=== PATIENT | female | born 1980 | race Caucasian/White ===

== ENCOUNTER 2023-07-07 22:28 | Observation (INO) | payer OTHER, SELFPAY ==
[2023-07-07] VITALS (14 sets, daily range): BP systolic 85–105; BP diastolic 63–71; PULSE 94–97; RESP 19–24; TEMP 37.1; O2SAT 81–100
--- NOTE | 2023-07-07 22:42 | ECG_ITS ---
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
--- NOTE | 2023-07-07 22:43 | CT_ITS ---
[address] [address] Patient Name: LIZET CUADRA MRN: [id number] date: 1980 Sex: F Assigned Patient Location: ER Current Patient Location: ER Accession/Order Number: [id number] Exam Date: 07/07/2023 23:00 Report Date: 07/07/2023 23:58 At the request of: ARIANNA ANTUNEZ Procedure: CT head/brain wo con EXAM: CT head/brain wo con, CT cervical spine wo con HISTORY: altered mentation, unwitnessed fall COMPARISON: None. TECHNIQUE: Axial CT scans through the head were obtained without IV contrast administration. Dose reduction techniques were achieved by using: automated exposure control and/or adjustment of mA and /or kV according to patient size and/or use of iterative reconstruction technique. CT BRAIN FINDINGS: There is no evidence of acute intracranial hemorrhage or abnormal extra-axial fluid collection. No mass effect or midline shift is seen. There is no evidence of large acute territorial infarction. There is no hydrocephalus. No definite acute fracture is identified. Soft tissues are unremarkable. The visualized orbits show no abnormal mass. The visualized paranasal sinuses show no air-fluid level. Mastoid air cells are clear. CT/CT head/brain wo con IMPRESSION: No CT evidence of acute intracranial abnormality. If there is sufficient clinical concern for acute brain parenchymal pathology, consider MRI for further evaluation. CT CERVICAL SPINE FINDINGS: Exam is distorted secondary to motion artifact. Findings are made within these confines. No acute fracture or posttraumatic malalignment is seen. The dens and lateral masses of C1 are symmetric. There is straightening of the normal cervical lordotic curvature. There is mild anterolisthesis of C3 on C4, C4 on C5 and C5 on C6.. The disc spaces are maintained. The prevertebral soft tissue space appears normal. Visualized neck shows no adenopathy. The left thyroid gland is not visualized (surgically resected?). There is a small low-attenuation nodule in the right thyroid gland. Visualized lung apices are clear. IMPRESSION: Within the limitations of motion artifact, no visualized acute cervical spine abnormality. Straightening of cervical lordosis, may be related to positioning or muscle spasm. Mild anterolisthesis of C3 on C4, C4 on C5 and C5 on C6 Small low-attenuation nodule in the right thyroid gland can be further evaluated with nonemergent thyroid ultrasound exam. Electronically authenticated by: LONG [employer]ER Date: 07/07/2023 23:58
--- NOTE | 2023-07-07 22:43 | CT_ITS ---
[address] [address] Patient Name: LIZET CUADRA MRN: [id number] date: 1980 Sex: F Assigned Patient Location: ER Current Patient Location: ER Accession/Order Number: [id number] Exam Date: 07/07/2023 23:00 Report Date: 07/07/2023 23:58 At the request of: ARIANNA ANTUNEZ Procedure: CT cervical spine wo con EXAM: CT head/brain wo con, CT cervical spine wo con HISTORY: altered mentation, unwitnessed fall COMPARISON: None. TECHNIQUE: Axial CT scans through the head were obtained without IV contrast administration. Dose reduction techniques were achieved by using: automated exposure control and/or adjustment of mA and /or kV according to patient size and/or use of iterative reconstruction technique. CT BRAIN FINDINGS: There is no evidence of acute intracranial hemorrhage or abnormal extra-axial fluid collection. No mass effect or midline shift is seen. There is no evidence of large acute territorial infarction. There is no hydrocephalus. No definite acute fracture is identified. Soft tissues are unremarkable. The visualized orbits show no abnormal mass. The visualized paranasal sinuses show no air-fluid level. Mastoid air cells are clear. CT/CT cervical spine wo con IMPRESSION: No CT evidence of acute intracranial abnormality. If there is sufficient clinical concern for acute brain parenchymal pathology, consider MRI for further evaluation. CT CERVICAL SPINE FINDINGS: Exam is distorted secondary to motion artifact. Findings are made within these confines. No acute fracture or posttraumatic malalignment is seen. The dens and lateral masses of C1 are symmetric. There is straightening of the normal cervical lordotic curvature. There is mild anterolisthesis of C3 on C4, C4 on C5 and C5 on C6.. The disc spaces are maintained. The prevertebral soft tissue space appears normal. Visualized neck shows no adenopathy. The left thyroid gland is not visualized (surgically resected?). There is a small low-attenuation nodule in the right thyroid gland. Visualized lung apices are clear. IMPRESSION: Within the limitations of motion artifact, no visualized acute cervical spine abnormality. Straightening of cervical lordosis, may be related to positioning or muscle spasm. Mild anterolisthesis of C3 on C4, C4 on C5 and C5 on C6 Small low-attenuation nodule in the right thyroid gland can be further evaluated with nonemergent thyroid ultrasound exam. Electronically authenticated by: LONG MEYER Date: 07/07/2023 23:58
[2023-07-07 23:01] LABS: Bilirubin Urine NEGATIVE (NEGATIVE); Blood Urine LARGE (NEGATIVE); Clarity Urine CLEAR (CLEAR); Color Urine LT. YELLOW (YELLOW); Glucose Urine UA NEGATIVE (NEGATIVE); Ketones Urine NEGATIVE (NEGATIVE); Leukocyte Esterase Urine NEGATIVE (NEGATIVE); Nitrite Urine NEGATIVE (NEGATIVE); Protein Urine TRACE mg/dL (NEG/TRACE); Specific Gravity Urine <=1.005 (1.005-1.025); Urobilinogen Urine 0.2 EU/dL (0.2-1.0); pH Urine 6.5 (5.0-9.0)
[2023-07-07 23:02] LABS: Basophils Percent Auto 0.2 % (0.2-2.0); Eosinophils Percent Auto 0.1 % (0.9-7.0); Hematocrit 36.7 % (36.0-48.0); Hemoglobin 12.1 g/dL (12.0-16.0); Immature Granulocytes Abs Auto 0.07 10^3/uL (0.00-0.03); Immature Granulocytes Pct Auto 0.5 % (0.0-0.5); Lymphocytes Absolute Auto 1.4 10^3/uL (1.2-3.8); Mean Corpuscular Volume 91.1 fL (81.0-99.0); Mean Platelet Volume 9.8 fL (9.5-13.5); Monocytes Absolute Auto 0.7 10^3/uL (0.3-0.8); Monocytes Percent Auto 4.4 % (1.7-12.0); Neutrophils Absolute Auto 12.9 10^3/uL (1.4-6.5); Neutrophils Percent Auto 85.8 % (43.0-75.0); Platelet Count 185 10^3/uL (150-450); Red Blood Count 4.03 10^6/uL (4.20-5.40); Red Cell Distribution Width 14.1 % (11.0-15.0); White Blood Count 15.1 10^3/uL (4.0-11.0)
[2023-07-07 23:04] LABS: Urine Microscopic Indicated YES
[2023-07-07 23:11] LABS: Bacteria Urine NONE SEEN #/HPF (NONE SEEN); Cast Seen? NONE SEEN #/LPF (NONE SEEN); Crystals Seen? None Seen #/HPF (None Seen); Mucus Urine NONE SEEN (NONE SEEN); Squamous Epithelial Cell Urine RARE #/LPF (NONE/RARE); WBC Urine 0-2 #/HPF (NONE SEEN)
--- NOTE | 2023-07-07 23:11 | XR_ITS ---
The [address] [address] Patient Name: LIZET CUADRA MRN: [id number] date: 1980 Sex: F Assigned Patient Location: ER Current Patient Location: ER Accession/Order Number: [id number] Exam Date: 07/07/2023 23:20 Report Date: 07/07/2023 23:59 At the request of: ARIANNA ANTUNEZ Procedure: XR chest 1V EXAM: XR chest 1V HISTORY: tachypnea COMPARISON: None. TECHNIQUE: AP view of the chest FINDINGS: The level of inspiration is suboptimal. There is no focal airspace consolidation. The cardiomediastinal silhouette is not enlarged. No evidence of pleural effusion or pneumothorax are identified. No acute osseous abnormality. XR/XR chest 1V IMPRESSION: No acute cardiopulmonary process. Electronically authenticated by: LONG MEYER Date: 07/07/2023 23:59
[2023-07-07 23:12] LABS: HCG Qualitative NEGATIVE (NEGATIVE)
[2023-07-07 23:14] LABS: Amphetamine Screen Urine NEGATIVE (NEGATIVE); Barbiturates Screen Urine POSITIVE (NEGATIVE); Benzodiazepines Screen Urine POSITIVE (NEGATIVE); Buprenorphine Screen Urine NEGATIVE (NEGATIVE); Cannabinoid Screen Urine POSITIVE (NEGATIVE); Cocaine Screen Urine NEGATIVE (NEGATIVE); Methadone Screen Urine NEGATIVE (NEGATIVE); Methamphetamines Screen Urine NEGATIVE (NEGATIVE); Opiate Screen Urine NEGATIVE (NEGATIVE); Oxycodone Screen Urine NEGATIVE (NEGATIVE); Phencyclidine Screen Urine NEGATIVE (NEGATIVE); Tricyclic Antidepressant Urine NEGATIVE (NEGATIVE)
[2023-07-07 23:16] LABS: Alanine Aminotransferase 24 U/L (14-59); Albumin Globulin Ratio 1.2; Albumin Level 3.8 g/dL (3.4-5.0); Alkaline Phosphatase 43 U/L (46-116); Anion Gap 13.3; Aspartate Amino Transferase 25 U/L (15-37); Bilirubin Total 0.5 mg/dL (0.2-1.0); Calcium 8.5 mg/dL (8.5-10.1); Carbon Dioxide 25.3 mmol/L (21.0-32.0); Chloride 100 mmol/L (98-107); Estimated GFR (African America 56 (>=60); Estimated GFR (Non-African Ame 46 (>=60); Globulin 3.1 g/dL; Glucose 98 mg/dL (74-106); Magnesium 1.9 mg/dL (1.8-2.4); Potassium 4.6 mmol/L (3.5-5.1); Sodium 134 mmol/L (136-145); Total Protein 6.9 g/dL (6.4-8.2)
[2023-07-07] MEDS: 0.9 % SODIUM CHLORIDE 1,000 ML 999 ML IV (23:24)
[2023-07-07 23:30] LABS: Ethanol <3 mg/dL
--- NOTE | 2023-07-07 23:36 | ED_ITS ---
HPI - Altered Mental Status General Chief Complaint: Altered Mental Status Stated Complaint: DIFF BREATHING Time Seen by Provider: 07/07/23 22:28 Source: other Source comment: Per nurse at [facility], and squad Mode of arrival: ambulance Limitations: altered mental status History of Present Illness HPI narrative: Patient brought in by EMS from [facility] for evaluation after the patient be came acutely altered about 15-20 minutes after she received her night time meds. She is at [facility] to treat her benzodiazepine addiction. She had apparently been at another facility and overdose on Klonopin and after being admitted to the hospital was released to [facility] yesterday. I spoke with Indra Aguirre - who was the provider that saw her tonight - and he told me that her current medical regimen is based on what she was receiving at the other rehab facility. He told me that the patient was walking and talking normally about 10 minutes before she took her medication. The staff found her on the floor, difficult to arouse and with slow deliberate speech, answering few questions. They reported that her room air pulse ox was only in the mid to high 80s. She denied taking any extra meds or drugs. EMS placed the patient on 4LPM NC and gave her two duoneb treatments in route. She arrived drowsy and with slow deliberate speech that was difficult to understand. Primary medical history includes seizure disorder, hypothyroidism, asthma and fibromyalgia in addition to benzodiazepine addiction Related Data Home Medications Medication Instructions Recorded Confirmed acetaminophen 500 mg tablet 500 mg PO Q6H PRN fever or pain 07/07/23 07/07/23 apixaban 5 mg tablet (Eliquis) 5 mg PO Q12H 07/07/23 07/07/23 buspirone 10 mg tablet 10 mg PO BID 07/07/23 07/07/23 cholecalciferol (vitamin D3) 50 50 mcg PO QDAY 07/07/23 07/07/23 mcg (2,000 unit) tablet cyclobenzaprine 5 mg tablet 5 mg PO Q12H PRN detox 07/07/23 07/07/23 dicyclomine 10 mg capsule 10 mg PO BID PRN insomnia 07/07/23 07/07/23 docusate sodium 100 mg capsule 100 mg PO BID PRN constipation 07/07/23 07/07/23 gabapentin 600 mg tablet 600 mg PO QID 07/07/23 07/07/23 haloperidol 5 mg tablet 5 mg PO BID 07/07/23 07/07/23 hydroxyzine pamoate 50 mg capsule 50 mg PO BID PRN anxiety 07/07/23 07/07/23 levetiracetam 500 mg tablet 500 mg PO Q12H 07/07/23 07/07/23 levothyroxine 25 mcg tablet 25 mcg PO QDAY 07/07/23 07/07/23 ondansetron 4 mg disintegrating 8 mg PO Q6H PRN nausea and vomiting 07/07/23 07/07/23 tablet pantoprazole 40 mg tablet,delayed 40 mg PO QDAY 07/07/23 07/07/23 release phenobarbital 30 mg tablet 30 mg PO Q12H 07/07/23 07/07/23 phenobarbital 60 mg tablet 60 mg PO Q12H 07/07/23 07/07/23 trazodone 100 mg tablet 200 mg PO QDAY 07/07/23 07/07/23 venlafaxine 150 mg 150 mg PO QDAY 07/07/23 07/07/23 capsule,extended release 24 hr Allergies Allergy/AdvReac Type Severity Reaction Status Date / Time No Known Drug Allergies Allergy Verified 07/07/23 22:42 Exam Narrative Exam Narrative: Nurses notes and vital signs reviewed and patient IS hypoxic on room air and mouth breathes - O2 sat drops to 88% when she doses off. afebrile General: keeps eyes closed, slow to respond with verbal stimuli but attempts to answer our questions. Skin: Warm, dry, no pallor noted. No rash. Head: Normocephalic, atraumatic. Neck: Supple, non-tender. Eye: Pupils are equal, round and EOMI. No scleral icterus. Ears, Nose, Mouth, and Throat: TM are clear, no nasal mucosal hypertrophy. Oral mucosa is moist, no posterior oropharynx erythema, uvula is mid-line Cardiovascular: Regular Rate and Rhythm without murmur, gallop or rub. Respiratory: No accessory muscle use or respiratory distress. Lungs are clear to auscultation, no wheezing, rales or rhonchi Chest Wall: no tenderness Back: No midline thoracic or lumbar vertebral tenderness. No CVA tenderness Musculoskeletal: normal ROM, no calf or popliteal tenderness, no lower extremity edema/swelling GI: Abdomen is soft, non-distended. Normal bowel sounds. No masses appreciated. No tenderness to palpation. No rebound, guarding, or rigidity noted. Neurological: A&O x4. won't sit up and any attempts on her part to move her extremities are weak. Sensation intact. Psychiatric: flat affect. Constitutional Vital Signs, click to edit/add: Last Vital Signs Temp 98.8 F 07/07/23 22:36 Pulse 94 H 07/07/23 22:50 Resp 22 07/07/23 22:50 BP 95/71 07/07/23 23:30 Pulse Ox 88 L 07/07/23 23:32 O2 Del Method Nasal Cannula 07/07/23 23:32 O2 Flow Rate 4 07/07/23 23:32 Course Vital Signs Vital signs: Vital Signs Pulse Rate 97 H 07/07/23 22:33 Respiratory Rate 21 07/07/23 22:33 Pulse Oximetry 81 L 07/07/23 22:33 Temperature 98.8 F 07/07/23 22:36 Pulse Rate 94 H 07/07/23 22:50 Respiratory Rate 22 07/07/23 22:50 Blood Pressure 95/71 07/07/23 23:30 Pulse Oximetry 88 L 07/07/23 23:32 Oxygen Delivery Method Nasal Cannula 07/07/23 23:32 Oxygen Delivery Flow Rate 4 07/07/23 23:32 MDM - Altered Mental Status MDM Narrative Medical decision making narrative: seizure precautions initiated. Patient was placed on creative services manager and EKG obtained. Blood drawn and sent for evaluation. I asked the emergency Department nurses to insert a Garcia catheter. Urine was obtained and sent for testing. The patient sent for CT scanning of the brain and cervical spine. She also had chest x-ray CBC reveals no elevated white blood cell count at 15k, left shift noted. CMP is essentially unremarkable With minimal decrease in sodium and also increasing creatinine. LFTs are normal. Urinalysis showed findings consistent with proceeding catheterization Ethanol negative. test negative. Urine tox screen positive for benzodiazepines, barbiturates and marijuana products Non-contrast CT scans brain and cervical spine without worrisome pathology to account for the patient's symptoms & CXR unremarkable, per radiologist. Aside from elevated WBC - without any source of infection - the workup was essentially negative and we were not able to find any cause for the patient's symptoms except for the large amount of sedative/anxiolytic meds that she was prescribed and took today. She remains somnolent. We placed a simple mask on the patient because she is mouth breathing and her pulse ox dropped to 885 on the nasal cannula. On the simple mask she is satting 100% on 10LPM. Call placed to the on-call tele-hospitalist to discuss admitting this patient. Dr Swain and I discussed the case and the patient will be placed in the ICU, obs admission, Dr Chandler's service. When she is more awake she can be discharged back to [facility] Medical Records Attestation: I reviewed the patient's medical records. Medical records narrative: I reviewed the patient's chart from [facility]. her nighttime medical regimen tonight included phenobarbital 90 mg, trazodone 200 mg, Haldol 5 mg, gabapentin 600 mg, buspirone 10 mg. She also had been receiving phenobarbital, Haldol, gabapentin throughout the day Lab Data Attestation: I reviewed the patient's lab results. Labs: Lab Results 07/07/23 07/07/23 Range/Units 21:51 21:52 WBC 15.1 H (4.0-11.0) 10^3/uL RBC 4.03 L (4.20-5.40) 10^6/uL Hgb 12.1 (12.0-16.0) g/dL Hct 36.7 (36.0-48.0) % MCV 91.1 (81.0-99.0) fL MCH 30.0 (26.7-34.0) pg MCHC 33.0 (29.9-35.2) g/dL RDW 14.1 (11.0-15.0) % Plt Count 185 (150-450) 10^3/uL MPV 9.8 (9.5-13.5) fL Neut % (Auto) 85.8 H (43.0-75.0) % Lymph % (Auto) 9.0 L (20.5-60.0) % [place] % (Auto) 4.4 (1.7-12.0) % Eos % (Auto) 0.1 L (0.9-7.0) % Baso % (Auto) 0.2 (0.2-2.0) % Neut # (Auto) 12.9 H (1.4-6.5) 10^3/uL Lymph # (Auto) 1.4 (1.2-3.8) 10^3/uL [place] # (Auto) 0.7 (0.3-0.8) 10^3/uL Eos # (Auto) 0.0 (0.0-0.7) 10^3/uL Baso # (Auto) 0.0 (0.0-0.1) 10^3/uL Abs Immat Gran (auto) 0.07 H (0.00-0.03) 10^3/uL Imm/Tot Granulo (auto) 0.5 (0.0-0.5) % Sodium 134 L (136-145) mmol/L Potassium 4.6 (3.5-5.1) mmol/L Chloride 100 (98-107) mmol/L Carbon Dioxide 25.3 (21.0-32.0) mmol/L Anion Gap 13.3 BUN 14.0 (7.0-18.0) mg/dL Creatinine 1.27 H (0.55-1.02) mg/dL Est GFR ( Amer) 56 L (>=60) Est GFR (Non-Af Amer) 46 L (>=60) BUN/Creatinine Ratio 11.0 Glucose 98 (74-106) mg/dL Calcium 8.5 (8.5-10.1) mg/dL Magnesium 1.9 (1.8-2.4) mg/dL Total Bilirubin 0.5 (0.2-1.0) mg/dL AST 25 (15-37) U/L ALT 24 (14-59) U/L Alkaline Phosphatase 43 L (46-116) U/L Total Protein 6.9 (6.4-8.2) g/dL Albumin 3.8 (3.4-5.0) g/dL Globulin 3.1 g/dL Albumin/Globulin Ratio 1.2 Serum HCG, Qual Negative (NEGATIVE) Urine Color Lt. yellow (YELLOW) Urine Clarity Clear (CLEAR) Urine pH 6.5 (5.0-9.0) Ur Specific Goodman <=1.005 A (1.005-1.025) Urine Protein Trace (NEG/TRACE) mg/dL Urine Glucose (UA) Negative (NEGATIVE) mg/dL Urine Ketones Negative (NEGATIVE) mg/dL Urine Occult Blood Large A (NEGATIVE) Urine Nitrite Negative (NEGATIVE) Urine Bilirubin Negative (NEGATIVE) Urine Urobilinogen 0.2 (0.2-1.0) EU/dL Ur Leukocyte Esterase Negative (NEGATIVE) Urine RBC 5-10 A (0-2) #/HPF Urine WBC 0-2 A (NONE SEEN) #/HPF Ur Squamous Epith Cells Rare (NONE/RARE) #/LPF Urine Crystals None seen (None Seen) #/HPF Urine Bacteria None seen (NONE SEEN) #/HPF Urine Casts None seen (NONE SEEN) #/LPF Urine Mucus None seen (NONE SEEN) Urine Opiates Screen Negative (NEGATIVE) Ur Buprenorphine Scrn Negative (NEGATIVE) Ur Oxycodone Screen Negative (NEGATIVE) Urine Methadone Screen Negative (NEGATIVE) Ur Propoxyphene Screen Negative (NEGATIVE) Ur Barbiturates Screen Positive A (NEGATIVE) U Tricyclic Antidepress Negative (NEGATIVE) Ur Phencyclidine Scrn Negative (NEGATIVE) Ur Amphetamines Screen Negative (NEGATIVE) U Methamphetamines Scrn Negative (NEGATIVE) U Benzodiazepines Scrn Positive A (NEGATIVE) Urine Cocaine Screen Negative (NEGATIVE) U Cannabinoids Screen Positive A (NEGATIVE) Ethanol Quant <3 mg/dL Imaging Data CT scan - head: Radiologist's impression: Patient Name: LIZET CUADRA MRN: [id number] date: 1980 Sex: F Assigned Patient Location: ER Current Patient Location: Accession/Order Number: [id number] Exam Date: 07/07/2023 23:00 Report Date: 07/07/2023 23:58 At the request of: ARIANNA ANTUNEZ Procedure: CT head/brain wo con EXAM: CT head/brain wo con, CT cervical spine wo con HISTORY: altered mentation, unwitnessed fall COMPARISON: None. TECHNIQUE: Axial CT scans through the head were obtained without IV contrast administration. Dose reduction techniques were achieved by using: automated exposure control and/or adjustment of mA and /or kV according to patient size and/or use of iterative reconstruction technique. CT BRAIN FINDINGS: There is no evidence of acute intracranial hemorrhage or abnormal extra-axial fluid collection. No mass effect or midline shift is seen. There is no evidence of large acute territorial infarction. There is no hydrocephalus. No definite acute fracture is identified. Soft tissues are unremarkable. The visualized orbits show no abnormal mass. The visualized paranasal sinuses show no air-fluid level. Mastoid air cells are clear. IMPRESSION: No CT evidence of acute intracranial abnormality. If there is sufficient clinical concern for acute brain parenchymal pathology, consider MRI for further evaluation. CT CERVICAL SPINE FINDINGS: Exam is distorted secondary to motion artifact. Findings are made within these confines. No acute fracture or posttraumatic malalignment is seen. The dens and lateral masses of C1 are symmetric. There is straightening of the normal cervical lordotic curvature. There is mild anterolisthesis of C3 on C4, C4 on C5 and C5 on C6.. The disc spaces are maintained. The prevertebral soft tissue space appears normal. Visualized neck shows no adenopathy. The left thyroid gland is not visualized (surgically resected?). There is a small low-attenuation nodule in the right thyroid gland. Visualized lung apices are clear. IMPRESSION: Within the limitations of motion artifact, no visualized acute cervical spine abnormality. Straightening of cervical lordosis, may be related to positioning or muscle spasm. Mild anterolisthesis of C3 on C4, C4 on C5 and C5 on C6 Small low-attenuation nodule in the right thyroid gland can be further evaluated with nonemergent thyroid ultrasound exam. Electronically authenticated by: [employer] Date: 07/07/2023 23:58 Chest x-ray: Radiologist's impression: Patient Name: LIZET CUADRA MRN: [id number] date: 1980 Sex: F Assigned Patient Location: Current Patient Location: Accession/Order Number: [id number] Exam Date: 07/07/2023 23:20 Report Date: 07/07/2023 23:59 At the request of: ARIANNA ANTUNEZ Procedure: XR chest 1V EXAM: XR chest 1V HISTORY: tachypnea COMPARISON: None. TECHNIQUE: AP view of the chest FINDINGS: The level of inspiration is suboptimal. There is no focal airspace consolidation. The cardiomediastinal silhouette is not enlarged. No evidence of pleural effusion or pneumothorax are identified. No acute osseous abnormality. IMPRESSION: No acute cardiopulmonary process. Electronically authenticated by: [employer] Date: 07/07/2023 23:59 ECG Data Interpretation: EKG interpretation: Emergency Department physician interpretation. Normal sinus rhythm at 97bpm. low QRS voltage chest leads. Normal axis, normal intervals and no ST segment elevation or depression. Discharge Plan Discharge Chief Complaint: Altered Mental Status Clinical Impression: Altered mental status, History of anxiolytic abuse, Medication reaction Patient Disposition: Admitted as Observation Time of Disposition Decision: 00:11 Additional Instructions: admit, ICU, Dr Chandler's service
[2023-07-08] VITALS (129 sets, daily range): BP systolic 72–110; BP diastolic 48–90; PULSE 77–100; RESP 12–40; TEMP 36.6–36.8; O2SAT 82–100; BMI 25.1
[2023-07-08 02:11] LABS: ABG PCO2 50.6 mmHg (35.0-45.0); pH ABG 7.285 (7.350-7.450)
[2023-07-08 02:12] LABS: Allen Test POSITIVE (POSITIVE); Base Excess ABG -2.6 mmol/L (-2.0-2.0); HCO3 ABG 24.1 mmol/L (22.0-26.0); Liters per Minute 10; O2 Mode SIMPLE MASK; Oxygen Saturation ABG 98.8 %; Puncture Site RR
[2023-07-08] MEDS: 0.9 % SODIUM CHLORIDE 500 ML 1000 ML IV (02:30)
--- NOTE | 2023-07-08 02:31 | W.PM.TELEPN ---
Progress Note: Subjective Subjective Interval history: CC: Somnolent HPI: This is a 43 years old female with history of benzodiazepine abuse, bipolar disorder, seizure, hypothyroidism sent over from substance rehabilitation facility after she become poorly responsive. Apparently patient overdosed on clonidine and has been evaluated in outside hospital yesterday. After that she has been released back to the facility where, according to the personnel, she took her scheduled medications and become unresponsive. Patient is unable to provide any information. Majority of data obtained from the conversation with the ED physician and medical records. No Narcan or flumazenil was given for the concern of causing seizures Exam Narrative Exam Narrative: Physical Exam: Lethargic, arousable to pain stimuli Head - atraumatic, eyes - pupils equal, round, reactive to light, extra ocular movement intact, MMM Neck - supple, thyroid not enlarged, LN not palpated Lungs - clear to auscultation, no dullness on percussion CVS - heart sounds S1, S2, no additional murmurs gallop, regular rate and rhythm Gastrointestinal?abdomen is soft, non-tender, non-distended, no organomegaly, positive bowel sounds Extremities no clubbing, cyanosis or edema Neurological?cranial nerve II?XII grossly intact, no meningeal signs, no cerebellar signs, no sensory deficit Musculoskeletal - joints, no effusions, ROM preserved Dermatological - the skin dry, warm, no rashes Constitutional Vital Signs, click to edit/add: Last Vital Signs Temp 98.0 F 07/08/23 01:35 Pulse 85 07/08/23 02:10 Resp 15 07/08/23 02:10 BP 91/52 07/08/23 01:35 Pulse Ox 99 07/08/23 02:10 O2 Del Method Simple Mask 07/08/23 01:35 O2 Flow Rate 10 07/08/23 01:35 Progress Note: Objective Labs Labs: Short CBC 07/07/23 Range/Units 21:51 WBC 15.1 H (4.0-11.0) 10^3/uL Hgb 12.1 (12.0-16.0) g/dL Hct 36.7 (36.0-48.0) % Plt Count 185 (150-450) 10^3/uL BMP 07/07/23 21:51 Sodium 134 L Potassium 4.6 Chloride 100 Carbon Dioxide 25.3 BUN 14.0 Creatinine 1.27 H Glucose 98 Calcium 8.5 Liver Function 07/07/23 Range/Units 21:51 Total Bilirubin 0.5 (0.2-1.0) mg/dL AST 25 (15-37) U/L ALT 24 (14-59) U/L Alkaline Phosphatase 43 L (46-116) U/L Albumin 3.8 (3.4-5.0) g/dL Urine 07/07/23 Range/Units 21:52 Urine Color Lt. yellow (YELLOW) Urine Clarity Clear (CLEAR) Urine pH 6.5 (5.0-9.0) Ur Specific [place] <=1.005 A (1.005-1.025) Urine Protein Trace (NEG/TRACE) mg/dL Urine Glucose (UA) Negative (NEGATIVE) mg/dL Progress Note: A&P Assessment and Plan (1) Altered mental status: Assessment and Plan: Most probably related to polysubstance abuse. Drug screen been negative for narcotics. Patient has known benzodiazepine abuse. No antibiotic was given for the concern to cause seizures. Continue to monitor in intensive care unit Patient is hypotensive. Going to initiate IV bolus followed by continuous IV fluid. Low threshold to initiate pressors (2) History of anxiolytic abuse: Assessment and Plan: See above. Patient in the rehab (3) CO2 retention: Assessment and Plan: Blood gas revealed CO2 retention which probably explain patient's somnolence. Going to initiate BiPAP. Recheck blood gas within few hours (4) Bipolar disorder: Assessment and Plan: Verify and resume home medications (5) Seizures: Assessment and Plan: I am going to transition Keppra to IV at 500 mg twice daily Plan Patient's home medications held for now. Verify in the morning. Restart if medically appropriate As the provider for the telehealth service, I attest that I introduced myself to the patient, provided my credentials, disclosed by location and determined that based on a review of the patient's chart and discussion with members of the patient's treatment team, telemedicine via real-time, 2 way, and interactive audio and video platform is an appropriate and effective means of providing the service. ?The patient and I mutually agree this visit is appropriate for telemedicine. ?The virtual encounter was taken place from? [place], [place]. ?The encounter took approximately 35 minutes. ?The nurse was present during the entire time and I was able to move the stethoscope in appropriate directions. ?The patient was evaluated at the Hospital ? Portions of this note may be dictated using [employer] voice recognition software. Variances in spelling and vocabulary are possible and unintentional. Not all errors may be caught and/or corrected. Please notify the author if any discrepancies are noted and/or if the meaning of any statement is unclear.? ? Patient verbally consented for treatment via video visit with patient currently located at the [facility] and provider located in [place]. Telemedicine Attestation Telemedicine Attestation I conducted this encounter from [[place]] via secure live, [id number] video conference with the patient, located at [facility] with [altered mental status]. Prior to the interview, the risks and benefits of telemedicine were discussed with the patient and verbal consent was obtained.
[2023-07-08 02:52] LABS: PCO2 VBG 36.6 mmHg (40.0-52.0); pH VBG 7.389 (7.330-7.430)
[2023-07-08 03:07] LABS: Alanine Aminotransferase 18 U/L (14-59); Albumin Globulin Ratio 1.2; Albumin Level 3.2 g/dL (3.4-5.0); Alkaline Phosphatase 41 U/L (46-116); Anion Gap 11.5; Aspartate Amino Transferase 13 U/L (15-37); Bilirubin Total 0.4 mg/dL (0.2-1.0); Calcium 8.1 mg/dL (8.5-10.1); Carbon Dioxide 24.7 mmol/L (21.0-32.0); Chloride 105 mmol/L (98-107); Estimated GFR (African America >60 (>=60); Estimated GFR (Non-African Ame 51 (>=60); Globulin 2.7 g/dL; Glucose 108 mg/dL (74-106); Potassium 4.2 mmol/L (3.5-5.1); Sodium 137 mmol/L (136-145); Total Protein 5.9 g/dL (6.4-8.2)
[2023-07-08] MEDS: 0.9 % SODIUM CHLORIDE 1,000 ML 75 ML IV (03:37)
[2023-07-08] MEDS: ONDANSETRON PF 4 MG/2 ML VIAL IV (03:38)
[2023-07-08 04:27] LABS: Allen Test POSITIVE (POSITIVE); Base Excess ABG -1.8 mmol/L (-2.0-2.0); HCO3 ABG 24.7 mmol/L (22.0-26.0); O2 Mode BIPAP; Oxygen Saturation ABG 98.6 %
[2023-07-08 04:28] LABS: Fractionated Inspired Oxygen 30 %; Puncture Site RR
[2023-07-08 04:29] LABS: ABG PCO2 50.3 mmHg (35.0-45.0); pH ABG 7.299 (7.350-7.450)
[2023-07-08] MEDS: LEVETIRACETAM 500 MG in 0.9 % SODIUM CHLORIDE 100 ML 420 MG IV ×2 (04:34→14:51)
[2023-07-08] MEDS: 0.9 % SODIUM CHLORIDE 1,000 ML 1000 ML IV ×2 (04:34→06:00)
--- NOTE | 2023-07-08 07:39 | RESP.RT ---
placed on room air
--- NOTE | 2023-07-08 08:39 | PM.HP ---
H&P: HPI History of Present Illness Chief complaint: DIFF BREATHING ALTERED MENTAL ANXIOLYTIC ABUSE Narrative: patient is a 43-year-old female with past medical history of bilateral pulmonary emboli diagnosed two months ago and has been taking all her questions, she also has a history of seizure disorder, GERD, insomnia, anxiety and was admitted to the [facility] rehab center for approximately two days for benzodiazepines addiction. patient in bed she was taking anywhere from 20-30 Klonopin a day. She reports she checked herself into rehab because of her children. 1st night went well but last night when she received her nighttime medications she passed out. She was found down by the physician at the rehab facility and was sent to the Emergency Room for being unresponsive. Patient was then admitted in respiratory distress and obtunded secondary to possible polypharmacy/unintentional drug overdose. At the time of admission exam she is sitting up alert and says that she just thinks her evening medications at the best of her. She denies any chest pain shortness of breath or issues this morning. She states that she would like to eat and get up to use the [employer] she does plan to return to rehab for her benzodiazepine addiction. Urine drug screen was positive for barbiturates, benzos, and THC. Review of Systems ROS Narrative ROS: a complete review of systems were reviewed with patient and are positive as below or listed in History of Chief Complaint. General: no fever, chills, night sweats Head: no headache, trauma, visual changes, nausea or vomiting Skin: no reported rashes, itching or sores Eyes: no blurriness of vision Ears: no reported hearing loss, vertigo, earache, or tinnitus Throat: no sore throat, hoarseness, swelling of neck, or tongue pain Heart: no chest pain Lungs: no shortness of breath or cough GI: no diarrhea or vomiting/nausea Urinary: no urinary urgency, frequency or pain Neuro: no numbness or tingling HEM: no bleeding issues or bruising ENDO: no thyroid problems Psych: no anxiety or depression [facility] Medical History (Updated 07/08/23 @ 12:15 by Sarah Chandler DO) Bilateral pulmonary embolism ?I26.99 - Other pulmonary embolism without acute cor pulmonale (ICD-10) Meds Home Medications and Allergies Home Medications Medication Instructions Recorded Confirmed Type acetaminophen 500 mg tablet 500 mg PO Q6H PRN fever or pain 07/07/23 07/07/23 History apixaban 5 mg tablet (Eliquis) 5 mg PO Q12H 07/07/23 07/07/23 History buspirone 10 mg tablet 10 mg PO BID 07/07/23 07/07/23 History cholecalciferol (vitamin D3) 50 50 mcg PO QDAY 07/07/23 07/07/23 History mcg (2,000 unit) tablet cyclobenzaprine 5 mg tablet 5 mg PO Q12H PRN detox 07/07/23 07/07/23 History dicyclomine 10 mg capsule 10 mg PO BID PRN insomnia 07/07/23 07/07/23 History docusate sodium 100 mg capsule 100 mg PO BID PRN constipation 07/07/23 07/07/23 History gabapentin 600 mg tablet 600 mg PO QID 07/07/23 07/07/23 History haloperidol 5 mg tablet 5 mg PO TID 07/07/23 07/08/23 History hydroxyzine pamoate 50 mg capsule 50 mg PO BID PRN anxiety 07/07/23 07/07/23 History levetiracetam 500 mg tablet 500 mg PO Q12H 07/07/23 07/07/23 History levothyroxine 25 mcg tablet 25 mcg PO QDAY 07/07/23 07/07/23 History ondansetron 4 mg disintegrating 8 mg PO Q8H PRN nausea and vomiting 07/07/23 07/08/23 History tablet pantoprazole 40 mg tablet,delayed 40 mg PO QDAY 07/07/23 07/07/23 History release phenobarbital 30 mg tablet 30 mg PO Q12H 07/07/23 07/07/23 History phenobarbital 60 mg tablet 60 mg PO Q12H 07/07/23 07/07/23 History trazodone 100 mg tablet 200 mg PO .QHS 07/07/23 07/08/23 History venlafaxine 150 mg 150 mg PO QDAY 07/07/23 07/07/23 History capsule,extended release 24 hr haloperidol 10 mg tablet 10 mg PO .QHS 07/08/23 07/08/23 History Allergies Allergy/AdvReac Type Severity Reaction Status Date / Time No Known Drug Allergies Allergy Verified 07/07/23 22:42 Exam Narrative Exam Narrative: General: Patient is alert, and oriented to person, place and time with normal affect, proper hygiene Skin: no visible rashes, or ulcers Head: atraumatic, acephalic Eyes: PERRLA, no nystagmus present, conjunctiva clear, no scleral icterus Ears: normal Tympanic Membrane, normal gross auditory acuity Nose: symmetric, no discharge, no maxillary or frontal sinus tenderness Mouth/Throat: no erythema, exudate, or tonsillar enlargement, normal dentition Neck: no masses palpated, normal thyroid, no JVD or audible carotid bruits Heart: Normal rate and rhythm, no murmurs/rubs/gallops Lungs: no audible wheezes, crackles and normal breath sounds all lung gayle Abdomen: Normal audible bowel sounds, no distension, No palpable masses, no organomegaly, no rebound/guarding/ or rigidity Musculoskeletal: no swelling bilateral lower extremities Neuro: CN II-X grossly intact, Constitutional Vital Signs, click to edit/add: Last Vital Signs Temp 97.8 F 07/08/23 07:44 Pulse 90 07/08/23 07:40 Resp 16 07/08/23 07:40 BP 101/67 07/08/23 07:31 Pulse Ox 97 07/08/23 07:40 O2 Del Method Room Air 07/08/23 07:44 O2 Flow Rate 2 07/08/23 07:38 FiO2 30 07/08/23 02:27 Results Labs Labs: Short CBC 07/07/23 Range/Units 21:51 WBC 15.1 H (4.0-11.0) 10^3/uL Hgb 12.1 (12.0-16.0) g/dL Hct 36.7 (36.0-48.0) % Plt Count 185 (150-450) 10^3/uL BMP 07/07/23 07/08/23 21:51 02:40 Sodium 134 L 137 Potassium 4.6 4.2 Chloride 100 105 Carbon Dioxide 25.3 24.7 BUN 14.0 14.0 Creatinine 1.27 H 1.17 H Glucose 98 108 H Calcium 8.5 8.1 L Liver Function 07/07/23 07/08/23 Range/Units 21:51 02:40 Total Bilirubin 0.5 0.4 (0.2-1.0) mg/dL AST 25 13 L (15-37) U/L ALT 24 18 (14-59) U/L Alkaline Phosphatase 43 L 41 L (46-116) U/L Albumin 3.8 3.2 L (3.4-5.0) g/dL Urine 07/07/23 Range/Units 21:52 Urine Color Lt. yellow (YELLOW) Urine Clarity Clear (CLEAR) Urine pH 6.5 (5.0-9.0) Ur Specific [place] <=1.005 A (1.005-1.025) Urine Protein Trace (NEG/TRACE) mg/dL Urine Glucose (UA) Negative (NEGATIVE) mg/dL ABG ABG results: 07/08/23 07/08/23 07/08/23 02:00 02:40 04:21 ABG pH 7.285 L* 7.299 L* ABG pCO2 50.6 H* 50.3 H* ABG pO2 257.0 H 115.0 H ABG HCO3 24.1 24.7 ABG O2 Saturation 98.8 98.6 ABG Base Excess -2.6 L -1.8 VBG pH 7.389 VBG pCO2 36.6 L Assessment and Plan Assessment and Plan (1) Altered mental status: Assessment and Plan: improved with IV fluids, BiPAP and time. Overalllabs showed some leukocytosis and mild and patient is a smoker, normal lactate. Less likely any signs of infection. Normal chest x-ray, normal CT of the head and neck. Patient is back to baseline mental status if continues to improve hopefully will be discharged back to rehab facility. (2) History of anxiolytic abuse: Assessment and Plan: we'll place on home medications once improved however will be discharged back to rehab facility for further treatment (3) CO2 retention: Assessment and Plan: this is chronic S patient is a smoker (4) Bipolar disorder: Assessment and Plan: patient does see his outpatient psychiatrist but will be released back to rehab. (5) Seizures: Assessment and Plan: we'll check Keppra dose and make sure her levels are normal and we'll continue IV Keppra for now. (6) Bilateral pulmonary embolism: Assessment and Plan: normal d-dimer, continue eliquis as outpatient Plan patient was placed on therapeutic Lovenox given that she is on eliquis patient is a full code patient has recovered faster than anticipated, hopeful discharge back to rehab facility today or tomorrow
[2023-07-08 09:01] LABS: Basophils Percent Auto 0.2 % (0.2-2.0); Eosinophils Absolute Auto 0.1 10^3/uL (0.0-0.7); Eosinophils Percent Auto 0.5 % (0.9-7.0); Hematocrit 30.1 % (36.0-48.0); Hemoglobin 9.9 g/dL (12.0-16.0); Immature Granulocytes Abs Auto 0.12 10^3/uL (0.00-0.03); Immature Granulocytes Pct Auto 0.9 % (0.0-0.5); Lymphocytes Absolute Auto 1.1 10^3/uL (1.2-3.8); Lymphocytes Percent Auto 8.4 % (20.5-60.0); Mean Corpuscular HGB Conc 32.9 g/dL (29.9-35.2); Mean Corpuscular Hemoglobin 30.9 pg (26.7-34.0); Mean Corpuscular Volume 94.1 fL (81.0-99.0); Mean Platelet Volume 9.3 fL (9.5-13.5); Monocytes Absolute Auto 0.6 10^3/uL (0.3-0.8); Monocytes Percent Auto 4.5 % (1.7-12.0); Neutrophils Absolute Auto 11.1 10^3/uL (1.4-6.5); Neutrophils Percent Auto 85.5 % (43.0-75.0); Platelet Count 148 10^3/uL (150-450); Red Cell Distribution Width 14.6 % (11.0-15.0)
[2023-07-08 09:18] LABS: D Dimer 0.25 mg/L FEU (<=0.59)
[2023-07-08 09:20] LABS: Magnesium 1.9 mg/dL (1.8-2.4)
[2023-07-08 09:21] LABS: Alanine Aminotransferase 19 U/L (14-59); Albumin Globulin Ratio 1.2; Albumin Level 2.9 g/dL (3.4-5.0); Alkaline Phosphatase 40 U/L (46-116); Anion Gap 5.8; Aspartate Amino Transferase 12 U/L (15-37); BUN Creatinine Ratio 11.8; Bilirubin Total 0.4 mg/dL (0.2-1.0); Calcium 7.5 mg/dL (8.5-10.1); Carbon Dioxide 25.1 mmol/L (21.0-32.0); Chloride 107 mmol/L (98-107); Estimated GFR (African America >60 (>=60); Estimated GFR (Non-African Ame 60 (>=60); Globulin 2.5 g/dL; Glucose 116 mg/dL (74-106); Potassium 3.9 mmol/L (3.5-5.1); Sodium 134 mmol/L (136-145); Total Protein 5.4 g/dL (6.4-8.2)
[2023-07-08 09:22] LABS: Ammonia 19 umol/L (11-32)
[2023-07-08 09:27] LABS: Lactate/Lactic Acid 1.6 mmol/L (0.4-2.0)
--- NOTE | 2023-07-08 10:49 | SWNOTE1 ---
BERTA spoke with [facility] and they can take her back, will just need a phone call when she is ready to go. They will also need paperwork from her stay, labs/doctor's notes/discharge information. BERTA to put together packet.
--- NOTE | 2023-07-08 11:25 | CM.NOTE ---
Rounds made with Dr. Chandler, will check with [facility] today regarding pt discharging back.
--- NOTE | 2023-07-08 14:10 | P.DS_ITS ---
DS: Providers Provider Date of admission: 07/08/23 00:42 Primary care physician: Non-Staff PhysicianMD Admitting clinician: Santos Jerez Sister Attending physician on discharge: Sarah Chandler Discharging clinician: Sarah Chandler DS: Diagnosis Discharge Diagnosis (1) Altered mental status: (2) History of anxiolytic abuse: (3) CO2 retention: (4) Bipolar disorder: (5) Seizures: (6) Bilateral pulmonary embolism: DS: Summary Hospital Course Hospital Course: please see H and P dated 07/08/23. Patient made a faster recovery than expected. At the time of discharge patient is back to her baseline, normal labs, no changes in home medications. Would caution rehab facility that the phenobarbital and Keppra, with the Haldol may cause more sedative effects would space out administering these medications. Resume all home meds. Return to [facility] today. Status at Discharge Functional status at discharge: independent ambulation Overall status at discharge: patient is back to baseline Time Spent with Patient Time attestation: Total time spent providing and/or coordinating discharge services: Time spent: greater than 30 minutes Exam Narrative Exam Narrative: no changes to discharge exam from the exam on H and P dated 07/08/23 Constitutional Vital Signs, click to edit/add: Last Vital Signs Temp 98.2 F 07/08/23 11:58 Pulse 100 H 07/08/23 11:58 Resp 16 07/08/23 11:58 BP 90/54 07/08/23 11:58 Pulse Ox 96 07/08/23 11:58 O2 Del Method Room Air 07/08/23 11:58 O2 Flow Rate 2 07/08/23 11:58 FiO2 30 07/08/23 11:58 DS: Data Data Completed and Pending Labs on day of discharge: Labs from last 24 hours 07/08/23 07/08/23 07/08/23 08:52 04:21 02:40 WBC 13.0 H RBC 3.20 L Hgb 9.9 L Hct 30.1 L MCV 94.1 MCH 30.9 MCHC 32.9 RDW 14.6 Plt Count 148 L MPV 9.3 L Neut % (Auto) 85.5 H Lymph % (Auto) 8.4 L [place] % (Auto) 4.5 Eos % (Auto) 0.5 L Baso % (Auto) 0.2 Neut # (Auto) 11.1 H Lymph # (Auto) 1.1 L [place] # (Auto) 0.6 Eos # (Auto) 0.1 Baso # (Auto) 0.0 Abs Immat Gran (auto) 0.12 H Imm/Tot Granulo (auto) 0.9 H D-Dimer 0.25 Puncture Site Rr ABG pH 7.299 L* ABG pCO2 50.3 H* ABG pO2 115.0 H ABG HCO3 24.7 ABG O2 Saturation 98.6 ABG Base Excess -1.8 Cam Test Positive VBG pH 7.389 VBG pCO2 36.6 L O2 Liters/Min FiO2 30 BiPAP 12/6 Sodium 134 L 137 Potassium 3.9 4.2 Chloride 107 105 Carbon Dioxide 25.1 24.7 Anion Gap 5.8 11.5 BUN 12.0 14.0 Creatinine 1.02 1.17 H Est GFR ( Amer) >60 >60 Est GFR (Non-Af Amer) 60 51 L BUN/Creatinine Ratio 11.8 12.0 Glucose 116 H 108 H Lactate 1.6 Calcium 7.5 L 8.1 L Magnesium 1.9 Total Bilirubin 0.4 0.4 AST 12 L 13 L ALT 19 18 Alkaline Phosphatase 40 L 41 L Ammonia 19 Total Protein 5.4 L 5.9 L Albumin 2.9 L 3.2 L Globulin 2.5 2.7 Albumin/Globulin Ratio 1.2 1.2 Serum HCG, Qual Urine Color Urine Clarity Urine pH Ur Specific [place] Urine Protein Urine Glucose (UA) Urine Ketones Urine Occult Blood Urine Nitrite Urine Bilirubin Urine Urobilinogen Ur Leukocyte Esterase Urine RBC Urine WBC Ur Squamous Epith Cells Urine Crystals Urine Bacteria Urine Casts Urine Mucus Urine Opiates Screen Ur Buprenorphine Scrn Ur Oxycodone Screen Urine Methadone Screen Ur Propoxyphene Screen Ur Barbiturates Screen U Tricyclic Antidepress Ur Phencyclidine Scrn Ur Amphetamines Screen U Methamphetamines Scrn U Benzodiazepines Scrn Urine Cocaine Screen U Cannabinoids Screen Ethanol Quant 07/08/23 07/07/23 07/07/23 02:00 21:52 21:51 WBC 15.1 H RBC 4.03 L Hgb 12.1 Hct 36.7 MCV 91.1 MCH 30.0 MCHC 33.0 RDW 14.1 Plt Count 185 MPV 9.8 Neut % (Auto) 85.8 H Lymph % (Auto) 9.0 L [place] % (Auto) 4.4 Eos % (Auto) 0.1 L Baso % (Auto) 0.2 Neut # (Auto) 12.9 H Lymph # (Auto) 1.4 [place] # (Auto) 0.7 Eos # (Auto) 0.0 Baso # (Auto) 0.0 Abs Immat Gran (auto) 0.07 H Imm/Tot Granulo (auto) 0.5 D-Dimer Puncture Site Rr ABG pH 7.285 L* ABG pCO2 50.6 H* ABG pO2 257.0 H ABG HCO3 24.1 ABG O2 Saturation 98.8 ABG Base Excess -2.6 L Cam Test Positive VBG pH VBG pCO2 O2 Liters/Min 10 FiO2 BiPAP Sodium 134 L Potassium 4.6 Chloride 100 Carbon Dioxide 25.3 Anion Gap 13.3 BUN 14.0 Creatinine 1.27 H Est GFR ( Amer) 56 L Est GFR (Non-Af Amer) 46 L BUN/Creatinine Ratio 11.0 Glucose 98 Lactate Calcium 8.5 Magnesium 1.9 Total Bilirubin 0.5 AST 25 ALT 24 Alkaline Phosphatase 43 L Ammonia Total Protein 6.9 Albumin 3.8 Globulin 3.1 Albumin/Globulin Ratio 1.2 Serum HCG, Qual Negative Urine Color Lt. yellow Urine Clarity Clear Urine pH 6.5 Ur Specific [place] <=1.005 A Urine Protein Trace Urine Glucose (UA) Negative Urine Ketones Negative Urine Occult Blood Large A Urine Nitrite Negative Urine Bilirubin Negative Urine Urobilinogen 0.2 Ur Leukocyte Esterase Negative Urine RBC 5-10 A Urine WBC 0-2 A Ur Squamous Epith Cells Rare Urine Crystals None seen Urine Bacteria None seen Urine Casts None seen Urine Mucus None seen Urine Opiates Screen Negative Ur Buprenorphine Scrn Negative Ur Oxycodone Screen Negative Urine Methadone Screen Negative Ur Propoxyphene Screen Negative Ur Barbiturates Screen Positive A U Tricyclic Antidepress Negative Ur Phencyclidine Scrn Negative Ur Amphetamines Screen Negative U Methamphetamines Scrn Negative U Benzodiazepines Scrn Positive A Urine Cocaine Screen Negative U Cannabinoids Screen Positive A Ethanol Quant <3 Discharge Plan Discharge Disposition: Xfer Inpatient Rehab Fac Discharge Medications: Continued acetaminophen 500 mg tablet 500 mg PO Q6H PRN (Reason: fever or pain) gabapentin 600 mg tablet 600 mg PO QID haloperidol 5 mg tablet 5 mg PO TID levetiracetam 500 mg tablet 500 mg PO Q12H levothyroxine 25 mcg tablet 25 mcg PO QDAY phenobarbital 60 mg tablet 60 mg PO Q12H trazodone 100 mg tablet 200 mg PO .QHS buspirone 10 mg tablet 10 mg PO BID phenobarbital 30 mg tablet 30 mg PO Q12H dicyclomine 10 mg capsule 10 mg PO BID PRN (Reason: insomnia) cyclobenzaprine 5 mg tablet 5 mg PO Q12H PRN (Reason: detox) Eliquis 5 mg tablet 5 mg PO Q12H pantoprazole 40 mg tablet,delayed release (DR/EC) 40 mg PO QDAY venlafaxine 150 mg capsule,extended release 24hr 150 mg PO QDAY cholecalciferol (vitamin D3) 50 mcg (2,000 unit) tablet 50 mcg PO QDAY hydroxyzine pamoate 50 mg capsule 50 mg PO BID PRN (Reason: anxiety) docusate sodium 100 mg capsule 100 mg PO BID PRN (Reason: constipation) ondansetron 4 mg tablet,disintegrating 8 mg PO Q8H PRN (Reason: nausea and vomiting) haloperidol 10 mg tablet 10 mg PO .QHS Forms: Portal Instructions Discharge location: the [facility] rehab facility
--- NOTE | 2023-07-08 14:36 | SWNOTE1 ---
Pt is ready for dc back to [facility], SW called [facility] and they will work on transport. SW updated nursing. SW did put together packet to [facility] which included dc information and information from her stay.
[2023-07-11 20:07] LABS: Levetiracetam (Keppra), S 16.6 ug/mL (10.0-40.0)
== END 2023-07-08 15:44 ==
LOC: ER 07-08 00:16 → ICU 07-08 00:46
PROVIDERS: Admitting Provider Internal Medicine; Emergency Provider Emergency Medicine; Visit Provider Family Medicine
DX: R41.82 Altered mental status, unspecified (principal); E87.29 Other acidosis; G40.909 Epilepsy, unspecified, not intractable, without status epilepticus; F13.11 Sedative, hypnotic or anxiolytic abuse, in remission; F31.9 Bipolar disorder, unspecified; E03.9 Hypothyroidism, unspecified; J45.909 Unspecified asthma, uncomplicated; M79.7 Fibromyalgia; Z86.711 Personal history of pulmonary embolism; Z79.899 Other long term (current) drug therapy; Z79.890 Hormone replacement therapy; F17.210 Nicotine dependence, cigarettes, uncomplicated; Z79.01 Long term (current) use of anticoagulants
CPT/HCPCS: 36415; 36600; 51702; 70450; 71045; 72125; 80053; 80177; 80307; 80320; 81001; 82140; 82800; 82805; 83605; 83735; 84703; 85025; 85378; 93005; 94660; 94761; 96361; 96365; 96375; 96376; 99285; G0378

== ENCOUNTER 2023-07-14 14:34 | Emergency (ER) | payer OTHER, SELFPAY ==
[2023-07-14 14:35] VITALS: BP 165/91; PULSE 88; RESP 20; O2SAT 97; BMI 29.2
--- NOTE | 2023-07-14 14:43 | XR_ITS ---
[address] [address] Patient Name: LIZET CUADRA MRN: [id number] date: 1980 Sex: F Assigned Patient Location: ER Current Patient Location: ER Accession/Order Number: [id number] Exam Date: 07/14/2023 14:45 Report Date: 07/14/2023 15:12 At the request of: ARIANNA ANTUNEZ Procedure: XR chest 1V ONE-VIEW CHEST RADIOGRAPH, 07/14/2023 2:45 PM EDT COMPARISON: Chest, 07/07/2023 CLINICAL HISTORY: chest pain FINDINGS: No acute cardiopulmonary disease. No pulmonary edema, pneumothorax, or pleural effusion. Normal heart size. No acute osseous abnormality. XR/XR chest 1V IMPRESSION: No acute abnormality identified. Electronically authenticated by: Chester HACKETT Date: 07/14/2023 15:12
--- NOTE | 2023-07-14 14:43 | ECG_ITS ---
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
--- NOTE | 2023-07-14 14:45 | ED.CHESTPAI1 ---
HPI - Chest Pain General Chief Complaint: Chest Pain Stated Complaint: CHEST PAIN Time Seen by Provider: 07/14/23 14:42 Source: patient Mode of arrival: ambulance Limitations: no limitations Related Data Home Medications Medication Instructions Recorded Confirmed acetaminophen 500 mg tablet 500 mg PO Q6H PRN fever or pain 07/07/23 07/07/23 apixaban 5 mg tablet (Eliquis) 5 mg PO Q12H 07/07/23 07/07/23 buspirone 10 mg tablet 10 mg PO BID 07/07/23 07/07/23 cholecalciferol (vitamin D3) 50 50 mcg PO QDAY 07/07/23 07/07/23 mcg (2,000 unit) tablet cyclobenzaprine 5 mg tablet 5 mg PO Q12H PRN detox 07/07/23 07/07/23 dicyclomine 10 mg capsule 10 mg PO BID PRN insomnia 07/07/23 07/07/23 docusate sodium 100 mg capsule 100 mg PO BID PRN constipation 07/07/23 07/07/23 gabapentin 600 mg tablet 600 mg PO QID 07/07/23 07/07/23 haloperidol 5 mg tablet 5 mg PO TID 07/07/23 07/08/23 hydroxyzine pamoate 50 mg capsule 50 mg PO BID PRN anxiety 07/07/23 07/07/23 levetiracetam 500 mg tablet 500 mg PO Q12H 07/07/23 07/07/23 levothyroxine 25 mcg tablet 25 mcg PO QDAY 07/07/23 07/07/23 ondansetron 4 mg disintegrating 8 mg PO Q8H PRN nausea and vomiting 07/07/23 07/08/23 tablet pantoprazole 40 mg tablet,delayed 40 mg PO QDAY 07/07/23 07/07/23 release phenobarbital 30 mg tablet 30 mg PO Q12H 07/07/23 07/07/23 phenobarbital 60 mg tablet 60 mg PO Q12H 07/07/23 07/07/23 trazodone 100 mg tablet 200 mg PO .QHS 07/07/23 07/08/23 venlafaxine 150 mg 150 mg PO QDAY 07/07/23 07/07/23 capsule,extended release 24 hr haloperidol 10 mg tablet 10 mg PO .QHS 07/08/23 07/08/23 Allergies Allergy/AdvReac Type Severity Reaction Status Date / Time No Known Drug Allergies Allergy Verified 07/07/23 22:42 PFSH PFS Medical History (Updated 07/14/23 @ 15:36 by Arianna Hall) Bilateral pulmonary embolism ?I26.99 - Other pulmonary embolism without acute cor pulmonale (ICD-10) Bipolar disorder ?F31.9 - Bipolar disorder, unspecified (ICD-10) 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, hypnotic or anxiolytic abuse, in remission (ICD-10) Seizures ?R56.9 - Unspecified convulsions (ICD-10) Exam Constitutional Vital Signs, click to edit/add: Last Vital Signs Pulse 88 07/14/23 14:35 Resp 20 07/14/23 14:35 BP 165/91 H 07/14/23 14:35 Pulse Ox 97 07/14/23 14:35 O2 Del Method Room Air 07/14/23 14:35 Course Vital Signs Vital signs: Vital Signs Pulse Rate 88 07/14/23 14:35 Respiratory Rate 20 07/14/23 14:35 Blood Pressure 165/91 H 07/14/23 14:35 Pulse Oximetry 97 07/14/23 14:35 Oxygen Delivery Method Room Air 07/14/23 14:35 Pulse Rate 88 07/14/23 14:35 Respiratory Rate 20 07/14/23 14:35 Blood Pressure 165/91 H 07/14/23 14:35 Pulse Oximetry 97 07/14/23 14:35 Oxygen Delivery Method Room Air 07/14/23 14:35 MDM - Chest Pain MDM Narrative Medical decision making narrative: EKG does not show any ST elevation or deep ischemic changes. Chest x-ray was also unremarkable. The patient has chest wall tenderness in the anterior lower sternal portion of the chest. She or he takes Eliquist. She was discharged back to [facility]. Imaging Data Chest x-ray: Radiologist's impression: Patient Name: LIZET CUADRA MRN: [id number] date: 1980 Sex: F Assigned Patient Location: ER Current Patient Location: ER Accession/Order Number: [id number] Exam Date: 07/14/2023 14:45 Report Date: 07/14/2023 15:12 At the request of: ARIANNA HALL Procedure: XR chest 1V ONE-VIEW CHEST RADIOGRAPH, 07/14/2023 2:45 PM EDT COMPARISON: Chest, 07/07/2023 CLINICAL HISTORY: chest pain FINDINGS: No acute cardiopulmonary disease. No pulmonary edema, pneumothorax, or pleural effusion. Normal heart size. No acute osseous abnormality. IMPRESSION: No acute abnormality identified. Electronically authenticated by: Chester HACKETT Date: 07/14/2023 15:12 ECG Data Attestation: ?I have reviewed the pertinent ECG results. Interpretation: EKG interpretation: Emergency Department physician interpretation. Normal sinus rhythm at 89bpm. Right axis, normal intervals and no ST segment elevation or depression. Discharge Plan Discharge Chief Complaint: Chest Pain Clinical Impression: Chest pain Patient Disposition: Home, Self-Care Time of Disposition Decision: 15:36 Prescriptions / Home Meds: No Action acetaminophen 500 mg tablet 500 mg PO Q6H PRN (Reason: fever or pain) gabapentin 600 mg tablet 600 mg PO QID haloperidol 5 mg tablet 5 mg PO TID levetiracetam 500 mg tablet 500 mg PO Q12H levothyroxine 25 mcg tablet 25 mcg PO QDAY phenobarbital 60 mg tablet 60 mg PO Q12H trazodone 100 mg tablet 200 mg PO .QHS buspirone 10 mg tablet 10 mg PO BID phenobarbital 30 mg tablet 30 mg PO Q12H dicyclomine 10 mg capsule 10 mg PO BID PRN (Reason: insomnia) cyclobenzaprine 5 mg tablet 5 mg PO Q12H PRN (Reason: detox) Eliquis 5 mg tablet 5 mg PO Q12H pantoprazole 40 mg tablet,delayed release (DR/EC) 40 mg PO QDAY venlafaxine 150 mg capsule,extended release 24hr 150 mg PO QDAY cholecalciferol (vitamin D3) 50 mcg (2,000 unit) tablet 50 mcg PO QDAY hydroxyzine pamoate 50 mg capsule 50 mg PO BID PRN (Reason: anxiety) docusate sodium 100 mg capsule 100 mg PO BID PRN (Reason: constipation) ondansetron 4 mg tablet,disintegrating 8 mg PO Q8H PRN (Reason: nausea and vomiting) haloperidol 10 mg tablet 10 mg PO .QHS Instructions: Chest Pain (ED) Stand Alone Forms: Portal Instructions Referrals: Physician,Non-Staff, MD [Primary Care Provider] - 1 week
== END 2023-07-14 15:53 | disposition home or self-care (01) ==
PROVIDERS: Emergency Provider Emergency Medicine
DX: R07.9 Chest pain, unspecified (principal); F31.9 Bipolar disorder, unspecified; F13.11 Sedative, hypnotic or anxiolytic abuse, in remission; Z86.711 Personal history of pulmonary embolism; Z79.899 Other long term (current) drug therapy; Z79.01 Long term (current) use of anticoagulants; Z79.890 Hormone replacement therapy
CPT/HCPCS: 71045; 93005; 99284